=== PATIENT | female | born 1950 | race Caucasian/White ===

== ENCOUNTER 2025-06-20 14:30 | Emergency (ER) | payer BC ==
[~2025-06-20] VITALS: Ht 157.5 cm; Wt 67.1 kg
[2025-06-20 14:38] VITALS: BP 102/63; PULSE 135; RESP 18; TEMP 97.3; O2SAT 98
--- NOTE | 2025-06-20 14:53 | Physician Documentation ---
History of Present Illness General Chief Complaint: Multiple Medical Complaints Stated Complaint: UTI Time Seen by MD: 14:48 History of Present Illness Initial Comments 75-year-old female who presents to the emergency department with upper and lower extremity rash. Patient is going to 7day course of Bactrim for reported UTI. She will begin a prescription of the 11 of June and discontinued it after six days due to unpleasant side effects. She has a mild pruritic upper extremity rash that is non purpuric type. The lower extremities also. He has no shortness a breath. She continues to have mild urinary symptoms such as urgency and inability to completely empty her bladder. Denies having prior allergies to sulfa products. Medication Reconciliation Allergies: Coded Allergies: sulfamethoxazole (Verified Allergy, Severe, RASH AND VOMITTING, 06/20/25) trimethoprim (Verified Allergy, Severe, RASH AND VOMITTING, 06/20/25) Review of Systems All Other Systems at this time: Reviewed and Negative Integ: Reports: rash, itching, lesions, change in color Physical Exam Physical Exam Vital Signs: RN Vital Signs have been reviewed: Yes, Temperature: 97.3, Heart Rate: 135, Respiratory Rate: 18, BP: 102/63, Pulse Oximetry: 98, Weight: 67.100 Oxygen Flow Rate: 0 General Appearance: alert, WD/WN, mild distress Head: normal inspection Face: normal inspection Pupils/EOM/Fundus: PERRLA Respiratory: lungs clear Chest: no accessory muscle use Back: normal inspection Neurologic: oriented x4 Motor / Sensory: no motor deficit Psychiatric: normal mood/affect Skin: rash Progress Results/Orders Results/Orders Vital Signs 06/20/25 14:38 Temp 97.3 Pulse 135 Resp 18 B/P (MAP) 102/63 Pulse Ox 98 O2 Flow Rate 0 Laboratory Tests Test 06/20/25 15:03 White Blood Count 11.2 H Red Blood Count 4.97 Hemoglobin 14.8 Hematocrit 43.3 Mean Corpuscular Volume 87.2 Mean Corpuscular Hemoglobin 29.8 Mean Corpuscular Hemoglobin Concent 34.2 Red Cell Distribution Width 13.9 Platelet Count 275 Mean Platelet Volume 9.4 Neutrophils (%) (Auto) 83.1 H Lymphocytes (%) (Auto) 6.2 L Monocytes (%) (Auto) 4.4 Eosinophils (%) (Auto) 5.8 Basophils (%) (Auto) 0.5 Neutrophils # (Auto) 9.3 H Lymphocytes # (Auto) 0.7 L Monocytes # (Auto) 0.5 Eosinophils # (Auto) 0.7 Basophils # (Auto) 0.1 CBC Comment Sodium Level 133 L Potassium Level 4.2 Chloride Level 99 Carbon Dioxide Level 22.0 L Anion Gap 12 Blood Urea Nitrogen 16 Creatinine 1.44 H Estimated GFR/1.73 m2 36 BUN/Creatinine Ratio 11.1 Glucose Level 134 H Calcium Level 9.3 Total Bilirubin 0.4 Aspartate Amino Transf (AST/SGOT) 22 Alanine Aminotransferase (ALT/SGPT) 24 Alkaline Phosphatase 108 Total Protein 8.4 H Albumin 3.7 Globulin 4.7 H Albumin/Globulin Ratio 0.8 L Lipase 19 Chemistry Comments Medical Decision Making Additional information obtaine: family Findings Examination history warrants laboratory screening and urinalysis screening for unresolved urinary tract infection. Initial concerns were that of De La Fuente- Abel syndrome however do not suspect at this time as rashes is non consistent. Timeline not consistent nor is any mucous membrane involvement. She however she is tachycardic which may be attributed to anxiousness, underlying UTI and/or hypersensitivity reaction. Patient is signed out to colleague at 6:30 p.m. pending evaluation of urinalysis for consideration of alternative antibiotic administration up to including ceftriaxone and antihistamine for rash. 1830: Clarke Hooks MAINTENANCE SUPERINTENDENT took over case from [place], while awaiting urinalysis patient appears to have eloped from [facility]. Differential Diagnosis Differentials include: Viral, Bacterial etiologies, Hypersensitivity type 1,2-3 & four. Breezy Roman'sSyndrome, TENS and/or autoimmune pathologies. Departure Disposition: 07 LEFT AWOL/ELOPED Impression: Primary Impression: Dysuria Additional Impression: Rash Referrals: NO PRIMARY CARE PROVIDER (PCP) Education Educated: Patient Educated regarding: diagnosis, treatment, prognosis Signature Scribe Signature: No scribe Attestation: The note accurately reflects work and decisions made by me.RUSSELL Scott 06/21/25 00:56 BAUDILIO SUAZO Jun 20, 2025 14:53 CLARKE HOOKS Jun 20, 2025 22:25
--- NOTE | 2025-06-20 14:53 | ELECTROCARDIOGRAPH REPORT ---
[facility] Test Date: 2025-06-20 Test Time: 14:52:04 Pat Name: GAEL CARROLL Department: [facility]- Patient ID: [id number] Room: Gender: F General Teller: : 1950 Requested By: IWONA WEST Order Number: [id number] Reading MD: Dr. Iwona West Measurements Intervals Fabius Rate: 135 P: 104 TN: 145 QRS: -28 QRSD: 81 T: -14 QT: 313 QTc: 470 Interpretive Statements Sinus tachycardia Low voltage, precordial leads Abnormal R-wave progression, early transition Left ventricular hypertrophy Nonspecific T abnormalities, inferior leads Electronically Signed On 06-20-2025 18:10:[address] Iwona West Please click the below link to view image of tracing.
[2025-06-20 15:22] LABS: MEAN PLATELET VOLUME 9.4 FL (7.4-10.4); RED CELL DISTRIBUTION WIDTH 13.9 % (11.5-14.5)
[2025-06-20 15:47] LABS: CREATININE 1.44 MG/DL (0.40-0.90); TOTAL CARBON DIOXIDE 22.0 MMOL/L (24-32); eCRCL 27 ML/MIN; eGFR 36 ML/MIN
== END 2025-06-20 19:57 | disposition left against medical advice (07) ==
LOC: ER 14:32
DX: R30.0 Dysuria (principal); R21 Rash and other nonspecific skin eruption; I49.8 Other specified cardiac arrhythmias; Z88.2 Allergy status to sulfonamides; Z88.8 Allergy status to other drugs, medicaments and biological substances
CPT/HCPCS: 36415; 80053; 83690; 85025; 93005; 99284